=== PATIENT | female | born 1945 | race Caucasian/White ===

== ENCOUNTER 2016-11-15 10:10 | Inpatient (IN) | payer MEDICARE, BC ==
[~2016-11-15] VITALS: Ht 170.2 cm; Wt 72.4 kg
[~2016-11-15 10:10] MED LIST: ALPR1TAB2 PO; METO50TA82 PO; OMEP40CA6 PO; OXYC5CAP4 PO; TOPI-33 PO
[2016-11-15 11:27] LABS: BLOOD UREA NITROGEN 14 mg/dL (7-18)
[2016-11-15] MEDS ORDERED: SODIUM CHLORIDE FLUSH 10ML SYR IVF PRN (13:00)
[2016-11-15 13:01] LABS: IS PT STATUS REG ER OR PRE ER? YES
[2016-11-15] MEDS ORDERED: ZOLPIDEM 5MG TABLET PO PRN (13:30)
[2016-11-15] MEDS ORDERED: ACETAMINOPHEN 325 MG TABLET PO PRN (13:30)
[2016-11-15] MEDS ORDERED: ENALAPRILAT 1.25 MG/ML, 2ML IV PRN (13:30)
[2016-11-15] MEDS ORDERED: IPRA15SP NAS (13:39)
[2016-11-15] MEDS ORDERED: HYDR-3241 PO (13:39)
[2016-11-15] MEDS ORDERED: BUPR200T31 PO (13:45)
[2016-11-15] MEDS ORDERED: FLUV50TA2 PO (13:45)
[2016-11-15] MEDS ORDERED: VIT D3 (13:45)
[2016-11-15] MEDS ORDERED: ALBU18HF PO (13:45)
[2016-11-15] MEDS ORDERED: POLY17PO5 PO (13:45)
[2016-11-15] MEDS ORDERED: ASPI-496 PO (13:45)
[2016-11-15] MEDS ORDERED: ENOXAPARIN 40 MG/0.4 ML SQ SCH (14:30)
[2016-11-15] MEDS ORDERED: ALPRazolam 1MG TABLET PO PRN (14:30)
[2016-11-15 15:10] VITALS: BP 155/77
[2016-11-15] MEDS: SODIUM CHLORIDE 0.9% 1,000 ML IV SCH (15:51)
[2016-11-15] MEDS: TOPIRAMATE 25 MG TABLET PO SCH ×2 (16:36→20:58)
[2016-11-15] MEDS ORDERED: METO-93 PO (17:38)
[2016-11-15] MEDS ORDERED: BUPR150T13 PO (17:38)
[2016-11-15] MEDS ORDERED: VENTOLIN 90 MCG INH (17:38)
[2016-11-15] MEDS ORDERED: MELA10TA PO (17:38)
[2016-11-15] MEDS ORDERED: CHOL200012 PO (17:38)
[2016-11-15] MEDS ORDERED: POTA10TA90 PO (17:38)
[2016-11-15 17:46] VITALS: BP 151/73
[2016-11-15 17:47] VITALS: BP 135/84
[2016-11-15 17:48] VITALS: BP 138/76
[2016-11-15 19:24] VITALS: BP 133/73
[2016-11-15] MEDS ORDERED: POLYETHYLENE GLYCOL 17 GM PACKET PO PRN (20:30)
[2016-11-15] MEDS: METOPROLOL TARTRATE 25 MG TABLET PO SCH (20:58)
[2016-11-15] MEDS ORDERED: METOPROLOL TARTRATE 50 MG TABLET PO SCH (21:00)
[2016-11-15] MEDS: SODIUM CHLORIDE FLUSH 10ML SYR IVF SCH (21:00)
[2016-11-16] MEDS: SODIUM CHLORIDE 0.9% 1,000 ML IV SCH ×2 (01:50→09:30)
[2016-11-16 02:00] VITALS: BP 127/70
[2016-11-16 06:40] LABS: BLOOD UREA NITROGEN 14 mg/dL (7-18)
[2016-11-16 06:43] LABS: ASPARTATE AMINO TRANSFERASE 10 U/L (15-37)
[2016-11-16 08:00] VITALS: BP 148/72
[2016-11-16] MEDS ORDERED: BUPROPION HCL 150 MG HOMEMEDPO SCH (09:00)
[2016-11-16] MEDS ORDERED: FLUVOXAMINE 50MG TABLET PO SCH (09:00)
[2016-11-16] MEDS ORDERED: OMEPRAZOLE 20 MG CAPSULE.DR PO SCH (09:00)
[2016-11-16] MEDS ORDERED: BUPROPION SR 150 MG TABLET PO SCH (09:00)
[2016-11-16] MEDS ORDERED: ASPIRIN 81 MG TABLET EC PO SCH (09:00)
[2016-11-16] MEDS ORDERED: GADOBUTROL 10 MMOL/10 ML VIAL ONE (09:03)
[2016-11-16 10:04] VITALS: BP 148/72
[2016-11-16] MEDS: SODIUM CHLORIDE FLUSH 10ML SYR IVF SCH (10:06)
[2016-11-16] MEDS: TOPIRAMATE 25 MG TABLET PO SCH (10:08)
[2016-11-16] MEDS: METOPROLOL TARTRATE 25 MG TABLET PO SCH (10:09)
[2016-11-17] MEDS ORDERED: POLYETHYLENE GLYCOL 17 GM PACKET PO SCH (09:00)
== END 2016-11-16 15:00 | disposition home or self-care (01) | DRG 73 ==
LOC: ED 13:23 → EDIP 13:28 → 5SO 15:04
PROVIDERS: ADMIT Internal Medicine; ATTEND Internal Medicine
DX: G90.8 Other disorders of autonomic nervous system (principal); G93.5 Compression of brain; I48.92 Unspecified atrial flutter; R55 Syncope and collapse; F32.9 Major depressive disorder, single episode, unspecified; F41.9 Anxiety disorder, unspecified; G47.00 Insomnia, unspecified; I11.9 Hypertensive heart disease without heart failure; I48.91 Unspecified atrial fibrillation; J44.9 Chronic obstructive pulmonary disease, unspecified; G56.03 Carpal tunnel syndrome, bilateral upper limbs; M54.2 Cervicalgia; K21.9 Gastro-esophageal reflux disease without esophagitis; K58.1 Irritable bowel syndrome with constipation; Z86.011 Personal history of benign neoplasm of the brain; Z87.891 Personal history of nicotine dependence; Z98.1 Arthrodesis status; Z88.2 Allergy status to sulfonamides; Z88.5 Allergy status to narcotic agent; Z88.8 Allergy status to other drugs, medicaments and biological substances; Z79.82 Long term (current) use of aspirin
CPT/HCPCS: 36415; 70546; 70553; 80048; 80053; 81003; 82040; 82607; 83735; 84100; 84443; 84484; 85025; 85651; 93005; 93880; 99285; A9585; C8929; J1650; J7030

== ENCOUNTER 2016-11-19 10:33 | Emergency (ER) | payer MEDICARE, BC ==
[~2016-11-19] VITALS: Ht 170.2 cm; Wt 72.0 kg
[~2016-11-19 10:33] MED LIST changes: +ALBU18HF PO; +ASPI-496 PO; +BUPR150T13 PO; +BUPR200T31 PO; +CHOL200012 PO; +FLUV50TA2 PO; +HYDR-3241 PO; +IPRA15SP NAS; +MELA10TA PO; +METO-93 PO; +POLY17PO5 PO; +POTA10TA90 PO; +VENTOLIN 90 MCG INH; +VIT D3
[2016-11-19 12:10] LABS: BLOOD UREA NITROGEN 14 mg/dL (7-18)
[2016-11-19 12:15] LABS: IS PT STATUS REG ER OR PRE ER? YES
[2016-11-19 13:46] VITALS: BP 153/69
== END 2016-11-19 14:06 | disposition home or self-care (01) ==
LOC: ED 12:41
DX: I95.0 Idiopathic hypotension (principal); R55 Syncope and collapse; Z88.1 Allergy status to other antibiotic agents
CPT/HCPCS: 36415; 80048; 82040; 84484; 85025; 93005; 99285

== ENCOUNTER 2016-12-10 13:53 | Emergency (ER) | payer MEDICARE, BC ==
[~2016-12-10] VITALS: Ht 170.2 cm; Wt 70.0 kg
[2016-12-10] MEDS ORDERED: SODIUM CHLORIDE FLUSH 10ML SYR IVF ONE (14:30)
[2016-12-10] MEDS ORDERED: SODIUM CHLORIDE 0.9% 1,000ML IVBOLUS ONE (14:30)
[2016-12-10 15:03] LABS: ASPARTATE AMINO TRANSFERASE 105 U/L (15-37); BLOOD UREA NITROGEN 17 mg/dL (7-18)
[2016-12-10 15:16] LABS: IS PT STATUS REG ER OR PRE ER? YES
[2016-12-10 16:59] LABS: PATH.CAST-FLAG NOT PRESENT; SPERM-FLAG NOT PRESENT; SRC-FLAG NOT PRESENT; XTAL-FLAG NOT PRESENT; YLC-FLAG NOT PRESENT
[2016-12-10 17:02] LABS: DAU SCREEN DISCLAIMER
[2016-12-10 17:28] VITALS: BP 142/72
== END 2016-12-10 17:52 | disposition home or self-care (01) ==
LOC: ED 15:10
DX: R79.89 Other specified abnormal findings of blood chemistry (principal); I10 Essential (primary) hypertension; J44.9 Chronic obstructive pulmonary disease, unspecified; K21.9 Gastro-esophageal reflux disease without esophagitis; I48.91 Unspecified atrial fibrillation
CPT/HCPCS: 36415; 71010; 80053; 80307; 81001; 83880; 84484; 85025; 87086; 93005; 99285; J7030

== ENCOUNTER 2017-01-01 12:15 | Emergency (ER) | payer MEDICARE, BC ==
[~2017-01-01] VITALS: Ht 170.2 cm; Wt 70.0 kg
[2017-01-01] MEDS ORDERED: SODIUM CHLORIDE 0.9% 1,000 ML IV ONE (12:22)
[2017-01-01] MEDS ORDERED: PLEASE ENTER HEIGHT AND WEIGHT MC SCH (12:30)
[2017-01-01] MEDS ORDERED: SODIUM CHLORIDE 0.9% 1,000ML IVBOLUS ONE (12:30)
[2017-01-01] MEDS ORDERED: SODIUM CHLORIDE FLUSH 10ML SYR IVF ONE (12:30)
[2017-01-01 12:55] LABS: HEMATOCRIT 37.1 % (34.6-47.8); WHITE BLOOD COUNT 6.9 x10^3/uL (3.4-10)
[2017-01-01 13:04] LABS: BLOOD UREA NITROGEN 9 mg/dL (7-18)
[2017-01-01 13:16] LABS: IS PT STATUS REG ER OR PRE ER? YES
[2017-01-01] MEDS ORDERED: LIDOCAINE 1%, 20ML ONE (14:15)
[2017-01-01 14:25] LABS: PATH.CAST-FLAG NOT PRESENT; SPERM-FLAG NOT PRESENT; SRC-FLAG NOT PRESENT; XTAL-FLAG NOT PRESENT; YLC-FLAG NOT PRESENT
[2017-01-01] MEDS ORDERED: BACITRACIN ZINC OINT 500U/GM, 0.9 GM ONE (14:34)
[2017-01-01 16:08] VITALS: BP 120/58
== END 2017-01-01 16:09 | disposition home or self-care (01) ==
LOC: ED 13:36
DX: S61.512A Laceration without foreign body of left wrist, initial encounter (principal); S51.812A Laceration without foreign body of left forearm, initial encounter; S01.81XA Laceration without foreign body of other part of head, initial encounter; R55 Syncope and collapse; R53.1 Weakness; I10 Essential (primary) hypertension; I48.91 Unspecified atrial fibrillation; Z87.891 Personal history of nicotine dependence; X58.XXXA Exposure to other specified factors, initial encounter; Y93.89 Activity, other specified; Y92.89 Other specified places as the place of occurrence of the external cause; Y99.8 Other external cause status
CPT/HCPCS: 12002; 36415; 70450; 71010; 73110; 80048; 81001; 82040; 84484; 85025; 93005; 96360; 96361; 99285; J7030

== ENCOUNTER 2018-12-01 06:52 | Day surgery (SDC) | payer MEDICARE, BC ==
[2018-11-30 12:31] LABS: BASOPHILS # (AUTO) 0.06 x10^3/uL (0-0.1); BASOPHILS % (AUTO) 1 % (0-1); EOSINOPHILS # (AUTO) 0.02 x10^3/uL (0-0.4); EOSINOPHILS % (AUTO) 0 % (1-7); LYMPHOCYTES # (AUTO) 2.26 x10^3/uL (1-3.4); LYMPHOCYTES % (AUTO) 18 % (22-44); MD NO; MEAN CORPUSCULAR HGB CONC 32.1 g/dL (32.4-35.8); MEAN CORPUSCULAR VOLUME 93.4 fL (80-100); MEAN PLATELET VOLUME 9.6 fL (7.4-10.4); MONOCYTES # (AUTO) 0.72 x10^3/uL (0.2-0.8); MONOCYTES % (AUTO) 6 % (2-9); NEUTROPHILS # (AUTO) 9.72 x10^3/uL (1.8-6.8); NEUTROPHILS % (AUTO) 76 % (42-75); PLATELET COUNT 325 x10^3/uL (130-400); RED CELL DISTRIBUTION WIDTH 13.6 % (9.6-15.2)
[2018-11-30 12:36] VITALS: BP 133/62
[2018-11-30 12:42] LABS: ANION GAP 8 mmol/L (5-15); CALCIUM 9.7 mg/dL (8.5-10.1); CHLORIDE 107 mmol/L (98-107); CREATININE 0.85 mg/dL (0.55-1.02)
[~2018-12-01] VITALS: Ht 170.2 cm; Wt 73.6 kg
[~2018-12-01 06:52] MED LIST changes: +ALBU18HF INH; +ALPR1TAB6 PO; -CHOL200012 PO; +CHOL200074 PO; +DILT120C64 PO; +MONT10TA9 PO; +OXYC5CAP2 PO; -OXYC5CAP4 PO; +POTA10TA31 PO; +POTA10TA6 PO; -POTA10TA90 PO; -TOPI-33 PO; +TOPI25TA8 PO; +hydrocodone PO
[2018-12-01] MEDS ORDERED: SODIUM CHLORIDE 0.9% 1,000 ML IV SCH (07:03)
[2018-12-01] MEDS ORDERED: MIDAZOLAM 1 MG/ML, 2ML ONE (07:11)
[2018-12-01] MEDS ORDERED: FENTANYL PF 100 MCG/2ML ONE ×2 (07:11→09:12)
[2018-12-01] MEDS ORDERED: ADENOSINE 6 MG/2 ML ONE (07:12)
[2018-12-01] MEDS ORDERED: ISOPROTERENOL 0.2MG/ML, 5ML ONE (07:12)
[2018-12-01] MEDS ORDERED: LIDOCAINE 1%, 20ML ONE (07:12)
[2018-12-01] MEDS ORDERED: MIDAZOLAM 1 MG/ML, 5ML ONE (09:12)
[2018-12-01] MEDS ORDERED: METOPROLOL 1 MG/ML, 5ML ONE ×2 (09:43→09:49)
[2018-12-01] MEDS ORDERED: VENTOLIN 90 MCG INH PRN (10:30)
[2018-12-01] MEDS ORDERED: IPRATROPIUM BROMIDE NAS PRN (10:30)
[2018-12-01] MEDS ORDERED: HYDROCODONE 7.5 MG PO PRN (10:30)
[2018-12-01] MEDS ORDERED: TEMPLATE NON-FORMULARY MED. (Albuterol Sulfate (Ventolin Hfa) 90 MCG) INH PRN (10:30)
[2018-12-01] MEDS ORDERED: ACETAMINOPHEN 325 MG TABLET PO PRN (10:30)
[2018-12-01] MEDS ORDERED: ALPRazolam 1MG TAB PO PRN (10:30)
[2018-12-02] MEDS ORDERED: TEMPLATE NON-FORMULARY MED. (Diltiazem Hcl (Cartia Xt) 120 MG) PO SCH (09:00)
[2018-12-02] MEDS ORDERED: MONTELUKAST 10 MG TABLET PO SCH (09:00)
[2018-12-02] MEDS ORDERED: METOPROLOL SUCCINATE 50 MG TAB.ER.24H PO SCH (09:00)
[2018-12-02] MEDS ORDERED: TEMPLATE NON-FORMULARY MED. (Potassium Chloride** 10 MEQ) PO SCH (09:00)
== END 2018-12-01 14:50 | disposition home or self-care (01) ==
LOC: CACL 06:52
PROVIDERS: ATTEND Internal Medicine Cardiovascular Disease
DX: I47.1 Supraventricular tachycardia (principal); I48.91 Unspecified atrial fibrillation; I10 Essential (primary) hypertension; Z87.891 Personal history of nicotine dependence; Z79.82 Long term (current) use of aspirin; Z88.6 Allergy status to analgesic agent; Z88.1 Allergy status to other antibiotic agents; Z88.8 Allergy status to other drugs, medicaments and biological substances
CPT/HCPCS: 36415; 71046; 80048; 85025; 93613; 93621; 93623; 93653; 99156; 99157; C1730; C1894; C2630; J0153; J2250; J3010

== ENCOUNTER 2018-12-20 15:54 | Emergency (ER) | payer MEDICARE, BC ==
[~2018-12-20] VITALS: Ht 170.2 cm; Wt 76.6 kg
[2018-12-20 19:17] VITALS: BP 121/48
== END 2018-12-20 19:19 | disposition home or self-care (01) ==
LOC: ED 16:36
DX: R60.0 Localized edema (principal); N30.00 Acute cystitis without hematuria; I10 Essential (primary) hypertension; J44.9 Chronic obstructive pulmonary disease, unspecified; I48.91 Unspecified atrial fibrillation; Z90.49 Acquired absence of other specified parts of digestive tract; Z87.891 Personal history of nicotine dependence
CPT/HCPCS: 36415; 71045; 80053; 81001; 83880; 85025; 87077; 87086; 87186; 93005; 99284